=== PATIENT | female | born 1960 | race Caucasian/White ===

== ENCOUNTER 2016-11-04 14:53 | Emergency (ER) | payer BC ==
[~2016-11-04] VITALS: Ht 162.6 cm; Wt 47.6 kg
[~2016-11-04 14:53] MED LIST: FLOVENT 22120 INHALA; METHADONE5 MG; NASACORT AQ16.5 GM; SYNTHROID75 MCG; VALIUM5 MG; ZYRTEC10 M3; [UNRECOGNIZED DRUG - OTHER]
[2016-11-04 20:18] LABS: ADD MIUA? NO; BILIRUBIN NEGATIVE; BLOOD NEGATIVE; COLOR YELLOW ((YELLOW)); GLUCOSE (STRIP) NEGATIVE; KETONES 80; LEUKOCYTES NEGATIVE; NITRITE NEGATIVE; PROTEIN (STRIP) NEGATIVE; SPECIFIC GRAVITY 1.024 (1.000-1.030); UROBILINOGEN 0.2 MG/DL (0.2-1.0)
[2016-11-04 20:37] LABS: BASOPHIL COUNT 0.1 K/uL (0-0.1); EOSINOPHIL COUNT 0.1 K/uL (0-0.3); HEMATOCRIT 37.9 % (36.0-46.0); IMMATURE GRANULOCYTE (%) 0.6 % (0.0-0.7); LYMPHOCYTE COUNT 1.4 K/uL (1.0-2.8); MCH 24.6 PG (29.0-34.0); MCHC 30.9 G/DL (30.0-36.0); MCV 79.8 FL (83-99); MEAN PLAT.VOLUME 9.9 uM^3 (9.5-12.4); MONOCYTE (%) 8.3 % (3-12); MONOCYTE COUNT 0.4 K/uL (0-0.8); NEUTROPHIL (%) 59.7 % (45-76); PLATELET COUNT 296 K/uL (156-360); RBC DIS.WIDTH-CV 16.6 % (11.8-14.6); RBC DIS.WIDTH-SD 47.3 % (39-53); RED BLOOD COUNT 4.75 M/uL (3.80-5.20)
[2016-11-04 20:47] LABS: CHLORIDE 103 mEq/L (99-109); POTASSIUM 3.8 mEq/L (3.7-5.4); SODIUM 140 mEq/L (136-147)
[2016-11-04 20:49] LABS: GLUCOSE 84 mg/dL (70-99)
[2016-11-04 20:50] LABS: ANION GAP 15 MEQ/L (2-14)
[2016-11-04 20:51] LABS: TOTAL BILIRUBIN 0.5 mg/dL (0.0-1.0)
[2016-11-04 20:52] LABS: ALKALINE PHOSPHATASE 41 IU/L (3-129)
[2016-11-04 20:53] LABS: GFR ESTIMATE (CALCULATED) > 59 mL/min/
[2016-11-04 20:54] LABS: UREA NITROGEN (BUN) 11 mg/dL (9-23)
[2016-11-04 20:56] LABS: CREATINE KINASE 32 IU/L (1-294); LIPASE 7 U/L (1.0-51.0)
[2016-11-04] MEDS ORDERED: ATIVAN0.5 MG PO (22:08)
[2016-11-04 22:29] VITALS: BP 132/56
== END 2016-11-04 22:30 | disposition home or self-care (01) ==
LOC: EME 14:53
PROVIDERS: Emergency Medicine
DX: M62.838 Other muscle spasm (principal); F41.9 Anxiety disorder, unspecified; R11.2 Nausea with vomiting, unspecified; R10.9 Unspecified abdominal pain; J45.909 Unspecified asthma, uncomplicated; G89.29 Other chronic pain; Z79.891 Long term (current) use of opiate analgesic; F17.200 Nicotine dependence, unspecified, uncomplicated; Z71.6 Tobacco abuse counseling
CPT/HCPCS: 80053; 81003; 82550; 83690; 85025; 99281; 99285; J2060; J7030

== ENCOUNTER → 2016-12-05 | Outpatient (CLI) | payer BC ==
[~2016-12-05] MED LIST changes: +ATIVAN0.5 MG PO
== END | disposition home or self-care (01) ==
DX: R13.10 Dysphagia, unspecified (principal); K21.9 Gastro-esophageal reflux disease without esophagitis; R63.4 Abnormal weight loss
CPT/HCPCS: 92611 GN

== ENCOUNTER → 2017-02-24 | Outpatient (CLI) | payer BC ==
[~2017-02-24] MED LIST changes: +ERGOCALCIF50000 UNIT PO; +FLOVENT 11120 INHALA IH; -FLOVENT 22120 INHALA; +GABAPENTIN100 MG PO; -NASACORT AQ16.5 GM; +NASACORT10.8 ML BOTH NARES; +NEURONTIN300 MG PO; +NEXIUM20 MG PO; +SKELAXIN800 MG PO; -SYNTHROID75 MCG; +SYNTHROID88 MCG PO; -VALIUM5 MG; +VALIUM5 MG PO; -[UNRECOGNIZED DRUG - OTHER]
== END | disposition home or self-care (01) ==
LOC: CDC 10:42
DX: R00.1 Bradycardia, unspecified (principal); R94.31 Abnormal electrocardiogram [ECG] [EKG]; R93.2 Abnormal findings on diagnostic imaging of liver and biliary tract
CPT/HCPCS: 93000

== ENCOUNTER 2017-02-27 10:32 | Day surgery (SDC) | payer BC ==
[~2017-02-27] VITALS: Ht 162.6 cm; Wt 47.6 kg
[2017-02-27 11:18] VITALS: BP 111/59
[2017-02-27 17:19] VITALS: BP 132/55
[2017-02-27 18:30] VITALS: BP 109/65
[2017-02-27 19:09] VITALS: BP 114/59
== END 2017-02-27 19:15 | disposition home or self-care (01) ==
LOC: SDC 10:32
PROC: 0FT44ZZ Resection of Gallbladder, Percutaneous Endoscopic Approach (ICD-10-PCS; principal; 2017-02-27)
DX: K80.10 Calculus of gallbladder with chronic cholecystitis without obstruction (principal); K82.4 Cholesterolosis of gallbladder; K66.0 Peritoneal adhesions (postprocedural) (postinfection); F17.210 Nicotine dependence, cigarettes, uncomplicated; J45.909 Unspecified asthma, uncomplicated; K21.9 Gastro-esophageal reflux disease without esophagitis; M54.12 Radiculopathy, cervical region; F31.10 Bipolar disorder, current episode manic without psychotic features, unspecified; E03.9 Hypothyroidism, unspecified; Z85.850 Personal history of malignant neoplasm of thyroid
CPT/HCPCS: 88304; J0131; J0330; J1885; J2250; J3010

== ENCOUNTER → 2017-09-19 | Outpatient (CLI) | payer BC | END | disposition home or self-care (01) | LOC: NUC 07:00 | DX: R10.13 Epigastric pain (principal); G89.29 Other chronic pain | CPT/HCPCS: 78264; A9541 ==